=== PATIENT | female | born 1970 | race Caucasian/White ===

== ENCOUNTER 2017-05-08 02:49 | Emergency (ER) | payer MEDICARE, OTHER, SELFPAY ==
[~2017-05-08] VITALS: Ht 160 cm; Wt 56.7 kg
[2017-05-08] MEDS ORDERED: CYCL-259 PO (03:46)
[2017-05-08] MEDS ORDERED: NAPR550T30 PO (03:47)
[2017-05-08] MEDS ORDERED: DIPHENHYDRAMINE 50 MG/ML, 1ML IVPush ONE (04:00)
[2017-05-08] MEDS ORDERED: SODIUM CHLORIDE 0.9% 1,000ML IVBOLUS ONE (04:00)
[2017-05-08] MEDS ORDERED: METOCLOPRAMIDE 5 MG/ML, 2ML IVPush ONE (04:00)
[2017-05-08] MEDS ORDERED: KETOROLAC 30 MG/1 ML IVPush ONE (04:00)
[2017-05-08] MEDS ORDERED: KETOROLAC 30 MG/1 ML ONE (04:04)
[2017-05-08] MEDS ORDERED: DIPHENHYDRAMINE 50 MG/ML, 1ML ONE (04:04)
[2017-05-08] MEDS ORDERED: METOCLOPRAMIDE 5 MG/ML, 2ML ONE (04:04)
[2017-05-08 04:39] VITALS: BP 118/78
== END 2017-05-08 06:14 | disposition home or self-care (01) ==
LOC: ED 06:04
DX: G43.009 Migraine without aura, not intractable, without status migrainosus (principal)
CPT/HCPCS: 96361; 96374; 96375; 99285; J1200; J1885; J2765; J7030